=== PATIENT | female | born 1985 | race Caucasian/White ===

== ENCOUNTER 2019-09-24 10:08 | Emergency (ER) | payer MEDICAID, OTHER ==
[2019-09-24 11:55] VITALS: BP 101/70
--- NOTE | 2019-09-24 12:27 | ED ---
HPI Chest Pain - HPI Summary HPI Summary: 34 yr old female with the complaint of pressure in the chest intermittently for the past week. She gets associated shortness of breath. This morning she feels she was wheezing, but not now. She does not feel she has a cold or cough symptoms. She denies any new swelling or pain in the calfs or thighs.She denies fever and chills She denies having runny nose, sore throat, post nasal drip, coughing. She also complains of low back pain that radiates down into the left hip and lateral leg. She denies trauma or injury. The patient has some chronic back pain as well. She denies other complaints. - History of Current Complaint Chief Complaint: UCGeneralIllness Time Seen by Provider: 09/24/19 12:04 Hx Last Menstrual Period: 09/04/19 Pain Intensity: 6 - Allergy/Home Medications Allergies/Adverse Reactions: Allergies Allergy/AdvReac Type Severity Reaction Status Date / Time No Known Allergies Allergy Verified 09/24/19 11:55 PMH/Surg Hx/FS Hx/Imm Hx GI History: Reports: Hx Gall Bladder Disease, Hx Gastroesophageal Reflux Disease Musculoskeletal History: Reports: Hx Back Problems Neurological History: Reports: Hx Headaches, Hx Migraine - Surgical History Surgery Procedure, Year, and Place: cholecystectomy Infectious Disease History: No Infectious Disease History: Denies: Traveled Outside the [place] in Last 30 Days - Family History Known Family History: Positive: Other - lupus - Social History Alcohol Use: None Substance Use Type: Reports: None Smoking Status (MU): Never Smoked Tobacco Review of Systems Constitutional: Negative Positive: Chest Pain Positive: Shortness Of Breath Positive: Other - low back pain left hip pain All Other Systems Reviewed And Are Negative: Yes Physical Exam Triage Information Reviewed: Yes Vital Signs On Initial Exam: Initial Vitals Temp Pulse Resp BP Pulse Ox 98.6 F 99 16 101/70 98 09/24/19 11:51 09/24/19 11:51 09/24/19 11:51 09/24/19 11:51 09/24/19 11:51 Vital Signs Reviewed: Yes Appearance: Positive: Well-Appearing, No Pain Distress Skin: Positive: Warm, Skin Color Reflects Adequate Perfusion Head/Face: Positive: Normal Head/Face Inspection Eyes: Positive: EOMI ENT: Positive: Normal ENT inspection Neck: Positive: Nontender Respiratory/Lung Sounds: Positive: Clear to Auscultation, Breath Sounds Present Cardiovascular: Positive: RRR. Negative: Murmur Abdomen Description: Negative: Distended Musculoskeletal: Positive: Strength/ROM Intact, Other - she walks with a normal gait. No swelling over the left hip area. No TLS SPINE tenderness. Neurological: Positive: Sensory/Motor Intact, Alert, Oriented to Person Place, Time, CN Intact II-III, Speech Normal Psychiatric: Positive: Normal Diagnostics - Vital Signs Vital Signs Temp Pulse Resp BP Pulse Ox 09/24/19 11:51 98.6 F 99 16 101/70 98 - Laboratory Lab Statement: Any lab studies that have been ordered have been reviewed, and results considered in the medical decision making process. - EKG 09/24/19 Cardiac Rate: NL EKG Rhythm: Sinus Rhythm ST Segment: Normal Ectopy: None Chest Pain Course/Dx - Course Course Of Treatment: 34 yr old with intermittent chest pain described as pressure and shortness of breath with low back pain that is chronic and radiating into the left hip. She signed out AMA with refusal to go to the ER by ambulance for her chest pain. - Diagnoses Provider Diagnoses: Chest pain, Low back pain Discharge ED - Sign-Out/Discharge Documenting (check all that apply): Patient Departure All imaging exams completed and their final reports reviewed: No Studies - Discharge Plan Condition: Good Disposition: AGAINST MEDICAL ADVICE Referrals: Ayanna Hilton [Primary Care Provider] - - Billing Disposition and Condition Condition: GOOD Disposition: Against Medical Advice
== END 2019-09-24 12:25 | disposition left against medical advice (07) ==
LOC: UCCORT 10:08
DX: R07.9 Chest pain, unspecified (principal); M54.5 Low back pain; M25.552 Pain in left hip
CPT/HCPCS: 93005; 99212; G0463